=== PATIENT | female | born 1950 | race Caucasian/White ===

== ENCOUNTER → 2016-11-25 | Outpatient (CLI) | payer OTHER ==
[~2016-11-25] MED LIST: ASPI-664 PO; BENAZEPRIL PO; IBUPROFEN PO
--- NOTE | 2016-11-25 16:38 | RADRPT ---
PROCEDURE: XR Foot. CLINICAL INDICATION: Pain TECHNIQUE: AP, lateral and oblique views of the left foot was obtained. The images were reviewed on a PACS workstation. COMPARISON: None. FINDINGS: The bones of the foot appear intact, with no evidence of fracture, dislocation, or subluxation. There are tiny inferior and posterior calcaneal spurs. The joint spaces are preserved. The bone mineralization is normal. No significant soft tissue swelling is seen. RPTAT: AA IMPRESSION: Tiny inferior and posterior calcaneal spurs. Physician Jethro Date Time Electronically viewed and signed by Physician Jethro on 11/25/2016 16:38 RA/
--- NOTE | 2016-11-25 16:39 | RADRPT ---
PROCEDURE: XR Foot. CLINICAL INDICATION: PAIN TECHNIQUE: AP, lateral and oblique views of the right foot was obtained. The images were reviewed on a PACS workstation. COMPARISON: None. FINDINGS: The bones of the foot appear intact, with no evidence of acute fracture, dislocation, or subluxation . There are tiny inferior and posterior calcaneal spurs. The joint spaces are preserved. Bone mineralization is normal. No significant soft tissue swelling is seen. IMPRESSION: Tiny inferior and posterior calcaneal spurs. RPTAT: EE Physician Jethro Date Time Electronically viewed and signed by Physician Jethro on 11/25/2016 16:38 RA/
== END | disposition home or self-care (01) ==
LOC: RAD 12:53
PROVIDERS: ATTEND Podiatrist
DX: M79.671 Pain in right foot (principal); M79.672 Pain in left foot; M77.32 Calcaneal spur, left foot; M77.31 Calcaneal spur, right foot
CPT/HCPCS: 73630